=== PATIENT | female | born 1960 | race Caucasian/White ===

== ENCOUNTER → 2020-05-20 | Outpatient (CLI) | payer OTHER ==
[~2020-05-20] MED LIST: OMNICEF 300 MG300 MG PO
== END ==
LOC: RAD 12:51
DX: R77.9 Abnormality of plasma protein, unspecified (principal); D72.819 Decreased white blood cell count, unspecified; M35.00 Sjogren syndrome, unspecified; M51.9 Unspecified thoracic, thoracolumbar and lumbosacral intervertebral disc disorder; R91.8 Other nonspecific abnormal finding of lung field
CPT/HCPCS: 77075

== ENCOUNTER → 2020-10-07 | Outpatient (CLI) | payer OTHER ==
[2020-10-08 07:10] LABS: RHEUMATOID ARTHRITIS FACTOR 64.6 IU/mL (0.0-13.9)
== END ==
LOC: LAB 11:58
PROVIDERS: Internal Medicine
DX: M05.79 Rheumatoid arthritis with rheumatoid factor of multiple sites without organ or systems involvement (principal); D89.89 Other specified disorders involving the immune mechanism, not elsewhere classified; M35.00 Sjogren syndrome, unspecified
CPT/HCPCS: 36415; 83520; 85652; 86140; 86200; 86431

== ENCOUNTER → 2020-12-12 | Outpatient (CLI) | payer OTHER | LOC: ECHO 11:10 | DX: I25.10 Atherosclerotic heart disease of native coronary artery without angina pectoris (principal) | CPT/HCPCS: ECHO; 93306 ==